=== PATIENT | female | born 1985 | race African-American/Black ===

== ENCOUNTER 2017-03-24 17:03 | Emergency (ER) | payer SELFPAY ==
[~2017-03-24] VITALS: Ht 162.6 cm; Wt 110.8 kg
[2017-03-24] MEDS ORDERED: ONDANSETRON ODT 4 MG PO ONE (18:00)
[2017-03-24] MEDS ORDERED: HYDROcodone/APAP 5/325 TABLET PO ONE (18:00)
[2017-03-24] MEDS ORDERED: ONDANSETRON ODT 4 MG ONE (18:01)
[2017-03-24] MEDS ORDERED: HYDROcodone/APAP 5/325 TABLET ONE ×2 (18:02→18:43)
[2017-03-24] MEDS ORDERED: LABETALOL 200 MG TABLET PO ONE (19:30)
[2017-03-24] MEDS ORDERED: SIMV5TAB5 PO (19:36)
[2017-03-24] MEDS ORDERED: HYDR25TA6 PO (19:36)
[2017-03-24] MEDS ORDERED: METO-99 PO (19:36)
[2017-03-24 20:16] VITALS: BP 199/122
== END 2017-03-24 20:20 | disposition home or self-care (01) ==
LOC: ED 18:48
DX: K08.89 Other specified disorders of teeth and supporting structures (principal); I10 Essential (primary) hypertension
CPT/HCPCS: 99284; Q0162

== ENCOUNTER 2017-05-05 20:40 | Emergency (ER) | payer MEDICAID ==
[~2017-05-05] VITALS: Ht 162.6 cm; Wt 107.1 kg
[~2017-05-05 20:40] MED LIST: HYDR25TA6 PO; METO-99 PO; SIMV5TAB5 PO
[2017-05-05 22:13] LABS: BLOOD UREA NITROGEN 11 mg/dL (7-18)
[2017-05-05] MEDS ORDERED: FLUCONAZOLE 100 MG TABLET PO ONE (22:30)
[2017-05-05] MEDS ORDERED: ACETAMINOPHEN 325 MG TABLET ONE (22:49)
[2017-05-05] MEDS ORDERED: ACETAMINOPHEN 325 MG TABLET PO ONE (23:00)
[2017-05-05 23:01] VITALS: BP 160/100
== END 2017-05-05 23:22 | disposition home or self-care (01) ==
LOC: ED 22:22
DX: N76.0 Acute vaginitis (principal); I10 Essential (primary) hypertension; E66.9 Obesity, unspecified; Z90.49 Acquired absence of other specified parts of digestive tract
CPT/HCPCS: 36415; 76830; 80048; 81001; 82040; 84703; 85025; 87086; 87210; 87491; 87591; 87808; 93005; 99285